=== PATIENT | male | born 1955 | race Caucasian/White ===

== ENCOUNTER 2022-05-09 06:56 | Day surgery (SDC) | payer OTHER ==
[~2022-05-09] VITALS: Ht 180.3 cm; Wt 92.8 kg
[2022-05-09] MEDS ORDERED: ALBU90OI INH (07:26)
[2022-05-09] MEDS ORDERED: ATOR80 (07:26)
[2022-05-09] MEDS ORDERED: Prinivil10 MG PO (07:27)
[2022-05-09] MEDS ORDERED: TIOT18 INH (07:27)
--- NOTE | 2022-05-09 07:35 | NUR ---
05/09/22 0735 Erika Tapia AT 0722 PLEADOREET AT [id number]
== END 2022-05-09 09:12 | disposition home or self-care (01) ==
LOC: ORSCSDS 06:56
PROVIDERS: Ophthalmology
PROC: 08RJ3JZ Replacement of Right Lens with Synthetic Substitute, Percutaneous Approach (ICD-10-PCS; principal; 2022-05-09 08:30)
DX: H25.11 Age-related nuclear cataract, right eye (principal); I10 Essential (primary) hypertension; J44.9 Chronic obstructive pulmonary disease, unspecified; E78.5 Hyperlipidemia, unspecified; F17.210 Nicotine dependence, cigarettes, uncomplicated
CPT/HCPCS: A9270; J2001; J2250; J3010; J3301; J7120; V2632

== ENCOUNTER 2023-05-22 11:26 | Day surgery (SDC) | payer OTHER ==
[~2023-05-22] VITALS: Ht 180.3 cm; Wt 90.1 kg
[~2023-05-22 11:26] MED LIST: ALBU90OI INH; ATOR80; Prinivil10 MG PO; TIOT18 INH
--- NOTE | 2023-05-22 12:02 | NUR ---
05/22/23 1202 TERRENCE KNOWLES TETRECAINE: [id number] PLEDGIT: [id number]
[2023-05-22] MEDS ORDERED: NAPROXEN250 M1 (12:04)
[2023-05-22] MEDS ORDERED: FISH OIL 1,0001 EA10 PO (12:04)
[2023-05-22 13:07] VITALS: BP 107/78
--- NOTE | 2023-05-22 13:21 | NUR ---
05/22/23 1321 Jeanmarie Zabala IV REMOVED INTACT. SITE WNL.
== END 2023-05-22 13:17 | disposition home or self-care (01) ==
LOC: ORSCSDS 11:26
PROVIDERS: Ophthalmology
PROC: 08RK3JZ Replacement of Left Lens with Synthetic Substitute, Percutaneous Approach (ICD-10-PCS; principal; 2023-05-22 13:00)
DX: H25.12 Age-related nuclear cataract, left eye (principal); H52.202 Unspecified astigmatism, left eye; Z96.1 Presence of intraocular lens; I10 Essential (primary) hypertension; J44.9 Chronic obstructive pulmonary disease, unspecified; E78.5 Hyperlipidemia, unspecified; Z79.899 Other long term (current) drug therapy
CPT/HCPCS: J2250; J3010; J3301; J7040; V2632